=== PATIENT | male | born 1990 | race Hispanic/Latino ===

== ENCOUNTER 2017-09-30 09:38 | Emergency (ER) | payer SELFPAY ==
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
[2017-09-30 11:11] VITALS: TEMP 98
--- NOTE | 2017-09-30 11:11 | RAD REPORT ---
EXAM DESCRIPTION: Adina Yadav (2 Views)09/30/2017 9:58 am CLINICAL HISTORY: Chest pain COMPARISON: None FINDINGS: The lungs appear clear of acute infiltrate. The heart is normal size . There is questionable cortical regularity involving the inferior aspect of the sternum. If the patien t has point tenderness in this region then a dedicated plain film series of the sternum would be andrew mmended
[2017-09-30 11:12] VITALS: O2SAT 98
[2017-09-30 11:14] VITALS: BP 101/71
== END 2017-09-30 11:08 | disposition home or self-care (01) ==
LOC: ER 09:38
DX: G40.802 Other epilepsy, not intractable, without status epilepticus (principal); V43.02XA Car driver injured in collision with other type car in nontraffic accident, initial encounter; F17.210 Nicotine dependence, cigarettes, uncomplicated
CPT/HCPCS: 70450; 71046; 72125; 72170; 99285

== ENCOUNTER 2022-11-14 00:28 | Emergency (ER) | payer SELFPAY ==
[2022-11-14] MEDS ORDERED: NA CHLORIDE 0.9% 100 ML ONE (01:09)
[2022-11-14] MEDS ORDERED: LEVETIRACETAM 500 MG/5 ML VIAL IV ONE (01:09)
[2022-11-14 01:17] LABS: Absolute Lymphocytes (CBC) 2.5 K/uL (0.7-4.9); Hematocrit 41.2 % (39.6-49.0); Lymphocytes % 32.3 % (15.3-44.8); MCV 88.2 fL (80-100); MPV 9.1 fL (7.6-11.3); RBC Red Blood Cell Count 4.67 M/uL (4.33-5.43)
[2022-11-14 01:29] LABS: Albumin 3.7 g/dL (3.4-5.0); Bilirubin Total 0.3 mg/dL (0.2-1.0); Potassium 3.5 mEq/L (3.5-5.1); Protein, Total 7.8 g/dL (6.4-8.2)
--- NOTE | 2022-11-14 01:45 | EDPHYS ---
Physician Documentation [facility] Name: Tommie Reese Age: 32 yrs Sex: Male : 1990 Arrival Date: 11/14/2022 Time: 00:28 Bed 13 Private MD: ED Physician Danielle López HPI: 11/14 00:48 This 32 yrs old Male presents to ER via Ambulatory with complaints of Head sp3 Injury-Adult, Fall Injury. 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 Patient had a frontal fall with impact to the nose and forehead. Unknown LOC secondary to patient seizing. Patient has normal postictal period and now feels "back to normal". Patient currently endorses mild headache but denies neck pain, fever, URI symptoms, chest pain, shortness of breath, back pain, abdominal pain, nausea, vomiting, diarrhea, syncope, focal neurodeficit, rash, known sick contacts, travel history, fever, or any other signs or symptoms on ROS at this time.. Historical: - Allergies: 00:39 No Known Allergies; as6 - Home Meds: 00:39 Keppra 500 mg Oral tablet 2 times per day [Active]; as6 - PMHx: 00:39 Seizures; seizures (TBI); as6 - PSHx: 00:39 None; as6 - Immunization history:: Adult Immunizations up to date. - Social history:: Smoking status: Patient denies any tobacco usage or history of. ROS: 00:50 Constitutional: Negative for fever, chills, and weight loss, Eyes: Negative for injury, sp3 pain, redness, and discharge, ENT: Negative for injury, pain, and discharge, Neck: Negative for injury, pain, and swelling, Cardiovascular: Negative for chest pain, palpitations, and edema, Respiratory: Negative for shortness of breath, cough, wheezing, and pleuritic chest pain, Abdomen/GI: Negative for abdominal pain, nausea, vomiting, diarrhea, and constipation, Back: Negative for injury and pain, MS/Extremity: Negative for injury and deformity, Skin: Negative for injury, rash, and discoloration, Psych: Negative for depression, anxiety, suicide ideation, homicidal ideation, and hallucinations, Allergy/Immunology: Negative for hives, rash, and allergies, Endocrine: Negative for neck swelling, polydipsia, polyuria, polyphagia, and marked weight changes, Hematologic/Lymphatic: Negative for swollen nodes, abnormal bleeding, and unusual bruising. 00:50 All other systems are negative. Exam: 00:51 Constitutional: This is a well developed, well nourished patient who is awake, alert, sp3 and in no acute distress. Head/Face: Normocephalic, atraumatic. Eyes: Pupils equal round and reactive to light, extra-ocular motions intact. Lids and lashes normal. Conjunctiva and sclera are non-icteric and not injected. Cornea within normal limits. Periorbital areas with no swelling, redness, or edema. ENT: Nares patent. No nasal discharge, no septal abnormalities noted. External auditory canals are clear. Oropharynx with no redness, swelling, or masses, exudates, or evidence of obstruction, uvula midline. Mucous membranes moist. Neck: Trachea midline, no thyromegaly or masses palpated, and no cervical lymphadenopathy. Supple, full range of motion without nuchal rigidity, or vertebral point tenderness. No Meningismus. Chest/axilla: Normal chest wall appearance and motion. Nontender with no deformity. No lesions are appreciated. Cardiovascular: Regular rate and rhythm with a normal S1 and S2. No gallops, murmurs, or rubs. Normal PMI, no JVD. No pulse deficits. Respiratory: Lungs have equal breath sounds bilaterally, clear to auscultation and percussion. No rales, rhonchi or wheezes noted. No increased work of breathing, no retractions or nasal flaring. Abdomen/GI: Soft, non-tender, with normal bowel sounds. No distension or tympany. No guarding or rebound. No evidence of tenderness throughout. Back: No spinal tenderness. No costovertebral tenderness. Full range of motion. Skin: Warm, dry with normal turgor. Normal color with no rashes, no lesions, and no evidence of cellulitis. MS/ Extremity: Pulses equal, no cyanosis. Neurovascular intact. Full, normal range of motion. Neuro: Awake and alert, GCS 15, oriented to person, place, time, and situation. Cranial nerves II-XII grossly intact. Motor strength 5/5 in all extremities. Sensory grossly intact. Cerebellar exam normal. Normal gait. Psych: Awake, alert, with orientation to person, place and time. Behavior, mood, and affect are within normal limits. Vital Signs: 00:39 BP 141 / 103; Pulse 95; Resp 16 S; Temp 98.6(O); Pulse Ox 97% on R/A; Weight 106.59 kg as6 (R); Height 5 ft. 11 in. (R); Pain 5/10; 00:45 BP 144 / 101; Pulse 90; Resp 18 S; Pulse Ox 97% on R/A; ha1 01:30 BP 141 / 95; Pulse 87; Resp 18 S; Pulse Ox 96% on R/A; ha1 00:39 Body Mass Index 32.78 (106.59 kg, 180.34 cm) as6 00:39 Pain Scale: Adult as6 MDM: 00:44 Patient medically screened. sp3 00:51 Data reviewed: vital signs, nurses notes, lab test result(s), radiologic studies. ED sp3 course: Likely's breakthrough seizure from missing seizure medications. Will obtain CT scan of the head, laboratory values and administer Keppra 1 g IV and discharge patient on 500 mg twice daily of Keppra with follow up with his PCP. I am not highly concerned for intracranial injury, intracranial hemorrhage, skull fracture, or any other traumatic injury or metabolic process at this time.. 01:43 ED course: CT scan is negative and laboratory values are within normal limits. We will sp3 recheck vital signs and safely discharge patient home on his Keppra prescription with PCP and neurology follow-up. He already has these scheduled. No further seizure activity observed in the emergency department. Patient's will be driving him home.. 11/14 00:45 Order name: CBC with Diff; Complete Time: 01:43 sp3 11/14 00:45 Order name: CMP; Complete Time: : sp3 11/14 00:45 Order name: CT Head Brain wo Cont sp3 11/14 00:45 Order name: IV Saline Lock; Complete Time: 00:55 sp3 11/14 00:45 Order name: Labs collected and sent; Complete Time: 00:55 sp3 11/14 00:45 Order name: Seizure Precautions; Complete Time: 00:55 sp3 Administered Medications: 01:07 Drug: Keppra IV 1000 mg Route: IV; Rate: calculated rate; Site: right antecubital; ha1 02:02 Follow up: Response: No adverse reaction; IV Status: Completed infusion; IV Intake: ha1 100ml Disposition Summary: 11/14/22 01:44 Discharge Ordered Location: Home sp3 Condition: Stable sp3 Diagnosis - Breakthrough seizure, epilepsy sp3 Followup: sp3 - With: Private Physician - When: Upon discharge from the Emergency Department - Reason: Recheck today's complaints, Continuance of care Discharge Instructions: - Discharge Summary Sheet sp3 - Seizure, Adult sp3 Forms: - Medication Reconciliation Form sp3 - Thank You Letter sp3 - Antibiotic Education sp3 - Prescription Opioid Use sp3 - Patient Portal Instructions sp3 - Work release form ha1 Prescriptions: - Keppra 500 mg Oral Tablet - take 1 tablet by ORAL route every 12 hours; 60 tablet; Refills: 0, Product sp3 Selection Permitted Signatures: Dispatcher [employer] Danielle Cyr MD MD sp3 Jermain Ledesma RN RN as6 Kala Rousseau RN RN ha1
--- NOTE | 2022-11-14 01:45 | ER ---
Nurse's Notes [facility] Name: Tommie Reese Age: 32 yrs Sex: Male : 1990 Arrival Date: 11/14/2022 Time: 00:28 Bed 13 Private MD: Diagnosis: Breakthrough seizure, epilepsy Presentation: 11/14 00:32 Onset of symptoms was November 14, 2022. ha1 00:39 Chief complaint: Patient states: pt had a seizure and fell and hit head in bathtub. pt as6 ran out of seizure medicine 2 days ago. Coronavirus screen: At this time, the client does not indicate any symptoms associated with coronavirus-19. Ebola Screen: No symptoms or risks identified at this time. Initial Sepsis Screen: Does the patient meet any 2 criteria? No. Patient's initial sepsis screen is negative. Does the patient have a suspected source of infection? No. Patient's initial sepsis screen is negative. Risk Assessment: Do you want to hurt yourself or someone else? Patient reports no desire to harm self or others. 00:39 Acuity: JUAN C 4 as6 00:39 Method Of Arrival: Ambulatory as6 Historical: - Allergies: 00:39 No Known Allergies; as6 - Home Meds: 00:39 Keppra 500 mg Oral tablet 2 times per day [Active]; as6 - PMHx: 00:39 Seizures; seizures (TBI); as6 - PSHx: 00:39 None; as6 - Immunization history:: Adult Immunizations up to date. - Social history:: Smoking status: Patient denies any tobacco usage or history of. Screenin:32 [facility] ED Fall Risk Assessment (Adult) History of falling in the last 3 months, ha1 including since admission No falls in past 3 months (0 pts) Confusion or Disorientation Yes (5 pts) Intoxicated or Sedated No (0 pts) Impaired Gait No (0 pts) Mobility Assist Device Used No (0 pt) Altered Elimination No (0 pt) Score/Fall Risk Level 0 - 2 = Low Risk Oriented to surroundings, Maintained a safe environment, Educated pt \T\ family on fall prevention, incl call for assistance when getting out of bed. Abuse screen: Denies threats or abuse. Denies injuries from another. Nutritional screening: On. Tuberculosis screening: No symptoms or risk factors identified. Assessment: 00:32 General: Appears comfortable. General: Appears Behavior is calm, cooperative. Pain: ha1 Denies pain. Neuro: Level of Consciousness is awake, alert, obeys commands, Oriented to person, place, time, situation, Reports feeling tired due to post seizure activity. Cardiovascular: Patient's skin is warm and dry. Respiratory: Airway is patent Respiratory effort is even, unlabored, Respiratory pattern is regular, symmetrical. GI: No signs and/or symptoms were reported involving the gastrointestinal system. Abdomen is flat, non-distended. Derm: Skin is pink, warm \T\ dry. Musculoskeletal: Circulation, motion, and sensation intact. Range of motion: intact in all extremities. 01:30 Reassessment: Patient and/or family updated on plan of care and expected duration. Pain ha1 level reassessed. Patient is alert, oriented x 3, equal unlabored respirations, skin warm/dry/pink. Patient denies pain at this time. Vital Signs: 00:39 BP 141 / 103; Pulse 95; Resp 16 S; Temp 98.6(O); Pulse Ox 97% on R/A; Weight 106.59 kg as6 (R); Height 5 ft. 11 in. (R); Pain 5/10; 00:45 BP 144 / 101; Pulse 90; Resp 18 S; Pulse Ox 97% on R/A; ha1 01:30 BP 141 / 95; Pulse 87; Resp 18 S; Pulse Ox 96% on R/A; ha1 00:39 Body Mass Index 32.78 (106.59 kg, 180.34 cm) as6 00:39 Pain Scale: Adult as6 ED Course: 00:30 Patient arrived in ED. ag3 00:32 Patient has correct armband on for positive identification. Bed in low position. Call ha1 light in reach. Side rails up X 1. 00:33 Danielle López MD is Attending Physician. sp3 00:39 Arm band placed on. as6 00:41 Triage completed. as6 00:46 Kala Rousseau, TYRA is Primary Nurse. ha1 00:50 Inserted saline lock: 20 gauge in right antecubital area, using aseptic technique. ha1 Blood collected. 00:55 CBC with Diff Sent. ha1 00:55 CMP Sent. ha1 01:19 CT Head Brain wo Cont In Process Unspecified. EDMS 02:05 No provider procedures requiring assistance completed. ha1 02:10 IV discontinued, intact, bleeding controlled, No redness/swelling at site. Pressure ha1 dressing applied. 02:11 Provided Education on: medication administration.. ha1 Administered Medications: 01:07 Drug: Keppra IV 1000 mg Route: IV; Rate: calculated rate; Site: right antecubital; ha1 02:02 Follow up: Response: No adverse reaction; IV Status: Completed infusion; IV Intake: ha1 100ml Medication: 02:11 VIS not applicable for this client. ha1 Intake: 02:02 IV: 100ml; Total: 100ml. ha1 Outcome: 01:44 Discharge ordered by . sp3 02:10 Discharged to home ambulatory, with family. ha1 02:10 Condition: stable 02:10 Discharge instructions given to patient, family, Instructed on discharge instructions, follow up and referral plans. medication usage, Demonstrated understanding of instructions, follow-up care, medications, Prescriptions given X 1. 02:12 Patient left the ED. ha1 Signatures: Dispatcher [employer] EDDE Torie Rodriguez 3 Danielle López MD MD sp3 Jermain Ledesma RN RN as6 Kala Rousseau RN RN ha1 Corrections: (The following items were deleted from the chart) 02:02 02:01 Response: No adverse reaction; IV Status: Completed infusion; IV Intake: 1000ml ha1 ha1
[2022-11-14 03:59] VITALS: TEMP 98.6
[2022-11-14 04:07] VITALS: BP 141/95; O2SAT 96
--- NOTE | 2022-11-14 15:47 | RAD REPORT ---
EXAM DESCRIPTION: CT - Head Brain Wo Cont - 11/14/2022 1:53 am CLINICAL HISTORY: SEIZURE COMPARISON: None. TECHNIQUE: CT HEAD WITHOUT IV CONTRAST on 11/14/2022 12:45 AM CDT This exam was performed according to our departmental dose-optimization program, which includes autom ated exposure control, adjustment of the mA and/or kV according to patient size and/or use of iterati ve reconstruction technique. FINDINGS: There is no acute hemorrhage, mass effect or midline shift. [place]-white differentiation is preserved. There is no hydrocephalus. There is no significant volume loss for age. The calvarium is intact. Orbits and globes are unremarkable. The paranasal sinuses are clear. Mastoid air cells are clear. IMPRESSION: No acute intracranial findings. Electronically signed by: Chaim Everett MD 11/14/2022 1:37 AM CDT Due to temporary technical issues with the PACS/Fluency reporting system, reports are being signed by the in house radiologists without review as a courtesy to insure prompt reporting. The interpreting radiologist is fully responsible for the content of the report.
== END 2022-11-14 02:12 | disposition home or self-care (01) ==
LOC: ER 00:28
DX: G40.909 Epilepsy, unspecified, not intractable, without status epilepticus (principal); Z87.820 Personal history of traumatic brain injury
CPT/HCPCS: 36415; 70450; 80053; 85025; J1953